=== PATIENT | female | born 1990 | race American Indian/Alaskan Native ===

== ENCOUNTER 2016-12-06 23:34 | Emergency (ER) | payer MEDICAID ==
[2016-12-07 01:26] LABS: Bilirubin,Urine NEG (Negative); Blood,Urine NEG (Negative); Ketones,Urine TR mg/dL (Negative); Leukocyte Esterase,Urine SM (Negative); Mucus,Urine 3+ /HPF; Nitrite,Urine NEG (Negative)
[2016-12-07] MEDS ORDERED: NORCO 5/325 PO ONE (05:25)
--- NOTE | 2016-12-07 05:25 | Emergency Department Report ---
ED ENT HPI - General Chief complaint: Dental/Oral Stated complaint: L SIDE FACIAL PAIN/TOOTHACHE Time Seen by Provider: 12/07/16 05:05 Source: patient Mode of arrival: Ambulatory Limitations: No Limitations - History of Present Illness Initial comments: 26-year-old femalesignificant past medical history presents complaining of bilateral upper and lower toothache. Patient states that she went to a dentist and was told that she has 4 wisdom teeth that need to be extracted. Patient states she is taking Motrin 800 mg with minimal relief of her discomfort. Patient states she was prescribed amoxicillin today by her dentist. Patient states that she has an appointment in January to have wisdom teeth extracted. Denies any pus or blood drainage from mouth states that pain is currently 7 out of 10. Patient speaking in full sentences. MD complaint: tooth pain Onset/Timin -: week(s) Location: tooth # (b/l upper and lower wisdom teeth. Pain behin teeth # 1. 16, 32, 17) Severity: moderate Severity scale (0 -10): 6 Quality: aching Worsens with: eating Context- Dental: other (wisdom teeth) - Related Data Previous Rx's Medication Instructions Recorded Last Taken Type Sulfamethoxazole/Trimethoprim 1 each PO Q12H #14 tablet 10/02/13 Unknown Rx [Bactrim Ds] Acetaminophen/Codeine [Tylenol 1 tab PO Q6H PRN #14 tab 12/07/16 Unknown Rx /Codeine # 3 tab] Chlorhexidine Mouthwash [Peridex] 15 ml MM BID #1 bottle 12/07/16 Unknown Rx Allergies Allergy/AdvReac Type Severity Reaction Status Date / Time No Known Allergies Allergy Unverified 10/02/13 13:35 ED Dental HPI - General Chief complaint: Dental/Oral Stated complaint: L SIDE FACIAL PAIN/TOOTHACHE Time Seen by Provider: 12/07/16 05:05 Source: patient Mode of arrival: Ambulatory Limitations: No Limitations - Related Data Previous Rx's Medication Instructions Recorded Last Taken Type Sulfamethoxazole/Trimethoprim 1 each PO Q12H #14 tablet 10/02/13 Unknown Rx [Bactrim Ds] Acetaminophen/Codeine [Tylenol 1 tab PO Q6H PRN #14 tab 12/07/16 Unknown Rx /Codeine # 3 tab] Chlorhexidine Mouthwash [Peridex] 15 ml MM BID #1 bottle 12/07/16 Unknown Rx Allergies Allergy/AdvReac Type Severity Reaction Status Date / Time No Known Allergies Allergy Unverified 10/02/13 13:35 ED Review of Systems ROS: Stated complaint: L SIDE FACIAL PAIN/TOOTHACHE Other details as noted in HPI Constitutional: denies: chills, fever Eyes: denies: eye pain, eye discharge, vision change ENT: dental pain. denies: ear pain, throat pain Respiratory: denies: cough, shortness of breath, wheezing Cardiovascular: denies: chest pain, palpitations Endocrine: no symptoms reported Gastrointestinal: denies: abdominal pain, nausea, diarrhea Genitourinary: denies: urgency, dysuria, discharge Musculoskeletal: denies: back pain, joint swelling, arthralgia Skin: denies: rash, lesions Neurological: denies: headache, weakness, paresthesias Psychiatric: denies: anxiety, depression Hematological/Lymphatic: denies: easy bleeding, easy bruising ED Past Medical Hx - Past Medical History Previous Medical History?: No - Surgical History Past Surgical History?: Yes Additional Surgical History: 2013 - Social History Smoking Status: Unknown if ever smoked - Medications Home Medications: Home Medications Medication Instructions Recorded Confirmed Last Taken Type Sulfamethoxazole/Trimethoprim 1 each PO Q12H #14 tablet 10/02/13 Unknown Rx [Bactrim Ds] Acetaminophen/Codeine [Tylenol 1 tab PO Q6H PRN #14 tab 12/07/16 Unknown Rx /Codeine # 3 tab] Chlorhexidine Mouthwash [Peridex] 15 ml MM BID #1 bottle 12/07/16 Unknown Rx ED Physical Exam - General Limitations: No Limitations General appearance: alert, in no apparent distress - Head Head exam: Present: atraumatic, normocephalic - Eye Eye exam: Present: normal appearance, PERRL, EOMI - ENT ENT exam: Present: mucous membranes moist - Expanded ENT Exam Expanded Teeth exam: Present: dental tenderness # (pain behind all 4 molars) Throat exam: Positive: normal inspection - Neck Neck exam: Present: normal inspection, full ROM - Respiratory Respiratory exam: Present: normal lung sounds bilaterally. Absent: respiratory distress - Cardiovascular Cardiovascular Exam: Present: regular rate, normal rhythm. Absent: systolic murmur, diastolic murmur, rubs, gallop - GI/Abdominal GI/Abdominal exam: Present: soft, normal bowel sounds - Extremities Exam Extremities exam: Present: normal inspection - Back Exam Back exam: Present: normal inspection - Neurological Exam Neurological exam: Present: alert, oriented X3 - Psychiatric Psychiatric exam: Present: normal affect, normal mood - Skin Skin exam: Present: warm, dry, intact, normal color. Absent: rash ED Course Vital Signs 12/07/16 00:45 Temperature 98.5 F Pulse Rate 77 Respiratory 16 Rate Blood Pressure 125/86 O2 Sat by Pulse 98 Oximetry ED Medical Decision Making - Medical Decision Making A/P: Toothache, wisdom teeth impaction 1-patient states she was ordered given a prescription for 10 day course of amoxicillin by her dentist 2-patient is taking 800 mg Motrin with minimal relief of her pain, will prescribe short course of Tylenol No. 3 with codeine 3-Peridex mouthwash 4- patient provided with a list of free dental clinics in [place] area Critical care attestation.: If time is entered above; I have spent that time in minutes in the direct care of this critically ill patient, excluding procedure time. ED Disposition Clinical Impression: Toothache Disposition: TO HOME OR SELFCARE Is pt being admited?: No Does the pt Need Aspirin: No Condition: Stable Instructions: Benzocaine (By mouth), Toothache (ED) Additional Instructions: [email or web address]&c= Map+and+Directions&[email or web address]&page=Map+and+Directions Prescriptions: Acetaminophen/Codeine [Tylenol /Codeine # 3 tab] 1 tab PO Q6H PRN #14 tab PRN Reason: Toothache Chlorhexidine Mouthwash [Peridex] 15 ml MM BID #1 bottle Referrals: [facility] [Outside] - 3-5 Days Forms: Work/School Release Form(ED) Time of Disposition: 05:30
[2016-12-07 05:45] VITALS: BP 127/87
== END 2016-12-07 05:45 | disposition home or self-care (01) ==
LOC: ED 23:34
DX: K08.89 Other specified disorders of teeth and supporting structures (principal)
CPT/HCPCS: 81001; 81025; 99283

== ENCOUNTER 2017-09-18 18:11 | Emergency (ER) | payer SELFPAY ==
--- NOTE | 2017-09-18 21:10 | Emergency Department Report ---
HPI - General Chief Complaint: Upper Respiratory Infection Time Seen by Provider: 09/18/17 19:30 - HPI HPI: This is a 27-year-old female here complaining of congestion and body ache for 2 months. She said it started off with her having nasal congestion and runny nose with cold symptoms and cough and and turned into wheezing. She says she is having some difficulty breathing and thinks it's related to mold in her apartment that she just recently moved into. She said this started when she moved into an apartment and she thinks it has mold but she has not reported it. She is here with her child who also has upper respiratory symptoms. Patient says she is having generalized aching in at 810. She is taking over-the- counter pain medication with minimal relief. Denies any fever or chills. Denies any nausea or vomiting. Denies any abdominal or back pain. Denies any chest pain. Denies any headache. Reports that she feels like there is pressure in her face. Denies any sore throat. Patient blood pressure is 142/ 101 without any history of high blood pressure. She says she's been taking a lot of llev-qwi-piibiff medication for cold and congestion. ED Past Medical Hx - Past Medical History Previous Medical History?: Yes Additional medical history: anemia, bronchitis - Surgical History Past Surgical History?: Yes Additional Surgical History: 2013, IUD removed and another IUD placed - Family History Family history: diabetes - Social History Smoking Status: Current Every Day Smoker Substance Use Type: Alcohol, Marijuana, Non Opiate Pain, Other - Medications Home Medications: Home Medications Medication Instructions Recorded Confirmed Last Taken Type Sulfamethoxazole/Trimethoprim 1 each PO Q12H #14 tablet 10/02/13 Unknown Rx [Bactrim Ds] Acetaminophen/Codeine [Tylenol 1 tab PO Q6H PRN #14 tab 12/07/16 Unknown Rx /Codeine # 3 tab] Chlorhexidine Mouthwash [Peridex] 15 ml MM BID #1 bottle 12/07/16 Unknown Rx ALBUTEROL Inhaler [ProAir HFA 2 puff IH Q6H PRN #1 inhalation 09/18/17 Unknown Rx Inhaler] Acetaminophen 500 mg PO Q6H PRN #12 tablet 09/18/17 Unknown Rx Amoxicillin/K Clav Tab [Augmentin 1 tab PO Q12HR 10 Days #20 tab 09/18/17 Unknown Rx 875 mg] Cetirizine HCl [ZyrTEC] 10 mg PO QAM 14 Days #14 capsule 09/18/17 Unknown Rx Fluticasone [Flonase] 1 spray NS QDAY 14 Days #1 bottle 09/18/17 Unknown Rx Prednisone 50 mg PO QAM 5 Days #5 tablet 09/18/17 Unknown Rx ED Review of Systems ROS: Stated complaint: CONGESTION,BODY ACHES,COUGH Other details as noted in HPI Comment: All other systems reviewed and negative Constitutional: no symptoms reported Eyes: denies: eye pain, eye discharge ENT: denies: ear pain, throat pain Respiratory: cough, shortness of breath, SOB with exertion, other (patient believes that she is exposed to mold). denies: orthopnea, SOB at rest, stridor , wheezing Cardiovascular: denies: chest pain, palpitations, dyspnea on exertion, orthopnea , edema, syncope, paroxysmal nocturnal dyspnea Gastrointestinal: denies: abdominal pain, nausea, vomiting, diarrhea, constipation, hematemesis, melena, hematochezia Genitourinary: denies: urgency, dysuria, frequency, hematuria, discharge, abnormal menses, dyspareunia Musculoskeletal: myalgia. denies: back pain, joint swelling, arthralgia Skin: denies: rash Neurological: denies: headache, abnormal gait, vertigo Physical Exam - Physical Exam Vital Signs: Vital Signs 09/18/17 18:19 Temperature 98.3 F Pulse Rate 94 H Respiratory 18 Rate Blood Pressure 142/101 O2 Sat by Pulse 97 Oximetry Vital Signs 09/18/17 09/18/17 09/18/17 18:19 21:30 21:45 Temperature 98.3 F Pulse Rate 94 H Pulse Rate [ 88 95 H Posterior] Respiratory 18 Rate Respiratory 16 20 Rate [Posterior ] Blood Pressure 142/101 Blood Pressure [Right] O2 Sat by Pulse 97 Oximetry 09/18/17 21:51 Temperature Pulse Rate 85 Pulse Rate [ Posterior] Respiratory 18 Rate Respiratory Rate [Posterior ] Blood Pressure Blood Pressure 144/94 [Right] O2 Sat by Pulse Oximetry General: This is 27-year-old female well-nourished well-developed in no acute distress Physical Exam: Head: Normocephalic atraumatic Ears:BIateral TM congested without erythema and loss of bony landmarks. Tesfaye EAC with normal exam. No mastoid bone tenderness. Mouth: Moist, no pharyngeal erythema or exudate . UVULA midline and oral airways patent. No peritonsillar abscess. No drooling noted. Neck: Nontender to palpate, supple, normal range of motion. No adenopathy. No c- spine tenderness. Nose: Bilateral nasal mucosa congested with clear drainage. Maxillary and frontal sinuses tender to palpate. Eyes: Bilateral Sclerae and conjunctiva without injection. Bilateral pupils equal and reactive to light. Bilateral lids are normal. Normal accommodation.BEOMI Lungs: Scattered wheezes in the upper lung cueto. No rhonchi or rales. Dry cough, Normal work of breathing and no chest wall tenderness Extremity: No clubbing, cyanosis or edema. +2 pulses to all extremities and no neurovascular compromise Abdomen: Soft, nontender to palpate noted by no facial grimacing. No distention or rigidity. Normal bowel sounds in all quadrants . Patient does not cry with tapping of bilateral flank. CV: S1, S2. Regular rate,Regular rhythm negative murmur. Capillary refill is less than 3 seconds Skin: Clean dry and intact, no rashes or lesions Psych: Normal mood and behavior ED Course Vital Signs 09/18/17 18:19 Temperature 98.3 F Pulse Rate 94 H Respiratory 18 Rate Blood Pressure 142/101 O2 Sat by Pulse 97 Oximetry - Reevaluation(s) Reevaluation #1: 09/18/17 23:36 Patient given Xopenex 0.63 mg, Atrovent 0.5 mg nebulizer and Deltasone 60 mg. Upon reevaluation, her lung sounds are clear and she says she is feeling better. Received clonidine 0.1 mg by mouth for elevated blood pressure and Motrin 800 mg by mouth for musculoskeletal pain. Pain is better and the blood pressure is better. ED Medical Decision Making - Radiology Data Radiology results: report reviewed, image reviewed interpreted by me: Chest images reviewed by myself and Dr. De La Fuente and patient does not have any acute cardiopulmonary findings but final reading to be done by radiologist. - Medical Decision Making ED course: Patient and here with cough and congestion, acute sinusitis and bronchitis. Musculoskeletal pain. She also had elevated blood pressure suspect from taking multiple [id number] decongestion. Patient and was given medication in emergency room for blood pressure and nebulizer treatments for wheezing to lungs. Her lung sounds are clear and she says she feels better. She was given blood pressure medication and blood pressure is better. I discussed patient that she needs to talk with her landlord regarding mold in apartment and she needs to remove herself from area. I also discuss her that she can call the health department to report this if landlord does not relocate her to area that is mold free. I discussed patient's chest x-ray results which did not have any negative findings on films when reviewed by myself and Dr. De La Fuente. I also discussed with her diagnosis and treatment plan and that she needs to follow up with primary care physician which she does not have one so I told her she is to follow-up at [facility] in 2-3 days. Patient was undescended discharge instruction and treatment plan and discharged home with prescription for Tessalon Perle, albuterol, Tylenol plain, Augmentin, Zyrtec and Flonase. Critical care attestation.: If time is entered above; I have spent that time in minutes in the direct care of this critically ill patient, excluding procedure time. ED Disposition Clinical Impression: Suspected exposure to mold, Cough in adult, Musculoskeletal pain Acute sinusitis Qualifiers: Sinusitis location: unspecified location Recurrence: not specified as recurrent Qualified Code(s): J01.90 - Acute sinusitis, unspecified Acute bronchitis Qualifiers: Bronchitis organism: unspecified organism Qualified Code(s): J20.9 - Acute bronchitis, unspecified Disposition: DC-01 TO HOME OR SELFCARE Is pt being admited?: No Does the pt Need Aspirin: No Condition: Stable Instructions: Acute Bronchitis (ED), Sinusitis (ED), Acute Cough (ED), How to Stop Smoking (ED), Hypertension (ED), How to Take a Blood Pressure (ED), Musculoskeletal Pain (ED) Additional Instructions: Please increase her fluid intake Flush nostrils with saline nasal spray take antibiotic as prescribed Take albuterol inhaler as prescribed Take Tylenol for pain F/U with primary care physician as instructed Take Zyrtec and Flonase for congestion A Tessalon Perles for cough Few suspect there is mold in your apartment, he will need to reported to landlord and if he does not move you to another apartment that is small free then he needs to call the health department. Prescriptions: Acetaminophen 500 mg PO Q6H PRN #12 tablet PRN Reason: musculoskeletal pain ALBUTEROL Inhaler [ProAir HFA Inhaler] 2 puff IH Q6H PRN #1 inhalation PRN Reason: cough and wheezing Amoxicillin/K Clav Tab [Augmentin 875 mg] 1 tab PO Q12HR 10 Days #20 tab Cetirizine HCl [ZyrTEC] 10 mg PO QAM 14 Days #14 capsule Fluticasone [Flonase] 1 spray NS QDAY 14 Days #1 bottle Prednisone 50 mg PO QAM 5 Days #5 tablet Referrals: PRIMARY CARE,MD [Primary Care Provider] - 2-3 Days [facility] [Outside] - 2-3 Days Forms: Work/School Release Form(ED)
[2017-09-18] MEDS ORDERED: ATROVENT IH ONE (21:12)
[2017-09-18] MEDS ORDERED: CATAPRES PO ONE (21:12)
[2017-09-18] MEDS ORDERED: DELTASONE PO ONE (21:12)
[2017-09-18] MEDS ORDERED: MOTRIN PO ONE (21:12)
[2017-09-18] MEDS ORDERED: XOPENEX IH ONE (21:12)
[2017-09-18] MEDS ORDERED: NACL 0.9% 1000 ML 2,000 ML IV ONE (23:21)
[2017-09-18 23:35] VITALS: BP 130/89
--- NOTE | 2017-09-19 00:33 | XRay Report ---
FINAL REPORT PROCEDURE: XR CHEST ROUTINE 2V TECHNIQUE: PA and lateral chest radiographs were obtained. CPT 68476 HISTORY: cough and congestion x 2 months COMPARISON: No prior studies are available for comparison. FINDINGS: Heart: Normal. Mediastinum/Vessels: Normal. Lungs/Pleural space: Normal. Bony thorax: No acute osseous abnormality. Other: IMPRESSION: Normal examination.
== END 2017-09-18 23:55 | disposition home or self-care (01) ==
LOC: ED 18:11
DX: J01.90 Acute sinusitis, unspecified (principal); J20.9 Acute bronchitis, unspecified; Z86.2 Personal history of diseases of the blood and blood-forming organs and certain disorders involving the immune mechanism; F17.200 Nicotine dependence, unspecified, uncomplicated; F12.10 Cannabis abuse, uncomplicated
CPT/HCPCS: 71046; 94640; 99283; J7512

== ENCOUNTER 2020-08-18 13:14 | Emergency (ER) | payer MEDICAID ==
[2020-08-18 14:05] VITALS: BP 130/100
--- NOTE | 2020-08-18 14:42 | Emergency Department Report ---
ED Extremity Problem HPI - General Chief complaint: Extremity Injury, Upper Stated complaint: RT SHOULDER PAIN Time Seen by Provider: 08/18/20 14:32 Source: patient Mode of arrival: Ambulatory Limitations: No Limitations - History of Present Illness Initial comments: Patient is a 30-year-old female presents emergency room complaints of right shoulder pain that began yesterday morning when she woke up. She states that she believes she may have slept wrong. She denies any fall or injury. 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 She states that her pain is worse with movement and lifting her arm above her head. She denies ever injuring this shoulder in the past. She denies any numbness, weakness, swelling, redness, fever, any other symptoms. No past medical history. No allergies to medications. Last menstrual cycle 08/03/2020. - Related Data Previous Rx's Medication Instructions Recorded Last Taken Type Amoxicillin 500 mg PO BID #20 capsule 04/26/18 Unknown Rx Fluticasone [Flonase] 1 spray NS QDAY #1 bottle 04/26/18 Unknown Rx methylPREDNISolone [Medrol] 4 mg PO DAILY #1 tab.ds.pk 04/26/18 Unknown Rx predniSONE [Deltasone] 20 mg PO DAILY #5 tablet 04/26/18 Unknown Rx Menthol/Camphor [Placentia Chaparral 1 applicatio TP BID #18 oint...g. 08/18/20 Unknown Rx Ointment] Naproxen [EC-Naprosyn] 500 mg PO BID PRN #14 tablet.dr 08/18/20 Unknown Rx methOCARBAMOL [Robaxin TAB] 500 mg PO BID PRN #14 tab 08/18/20 Unknown Rx Allergies Allergy/AdvReac Type Severity Reaction Status Date / Time No Known Allergies Allergy Verified 08/18/20 14:02 ED Review of Systems ROS: Stated complaint: RT SHOULDER PAIN Other details as noted in HPI Comment: All other systems reviewed and negative ED Past Medical Hx - Past Medical History Additional medical history: anemia, bronchitis/SCOILOSIS - Surgical History Additional Surgical History: 2013, IUD removed and another IUD placed - Social History Smoking Status: Never Smoker Substance Use Type: Alcohol, Marijuana - Medications Home Medications: Home Medications Medication Instructions Recorded Confirmed Last Taken Type Amoxicillin 500 mg PO BID #20 capsule 04/26/18 Unknown Rx Fluticasone [Flonase] 1 spray NS QDAY #1 bottle 04/26/18 Unknown Rx methylPREDNISolone [Medrol] 4 mg PO DAILY #1 tab.ds.pk 04/26/18 Unknown Rx predniSONE [Deltasone] 20 mg PO DAILY #5 tablet 04/26/18 Unknown Rx Menthol/Camphor [Placentia Chaparral 1 applicatio TP BID #18 oint...g. 08/18/20 Unknown Rx Ointment] Naproxen [EC-Naprosyn] 500 mg PO BID PRN #14 tablet.dr 08/18/20 Unknown Rx methOCARBAMOL [Robaxin TAB] 500 mg PO BID PRN #14 tab 08/18/20 Unknown Rx ED Physical Exam - General Limitations: No Limitations General appearance: alert, in no apparent distress - Head Head exam: Present: atraumatic, normocephalic - Eye Eye exam: Present: normal appearance - ENT ENT exam: Present: mucous membranes moist - Respiratory Respiratory exam: Absent: respiratory distress, accessory muscle use - Extremities Exam Extremities exam: Present: other (ttp to the right posterior trapezius, no bony ttp of the RUE, FROM of the RUE, no deformity, no edema, no ecchymosis, no increased warmth, no erythema, clavicles are equal, no clavicular ttp, neurovascularly intact) - Neurological Exam Neurological exam: Present: alert, oriented X3 - Psychiatric Psychiatric exam: Present: normal affect, normal mood - Skin Skin exam: Present: warm, dry, intact ED Course Vital Signs 08/18/20 14:01 Temperature 98.6 F Pulse Rate 82 Respiratory 20 Rate Blood Pressure 130/100 O2 Sat by Pulse 100 Oximetry ED Medical Decision Making - Medical Decision Making Patient is a 30-year-old female presents emergency room complaints of right shoulder pain that began yesterday morning when she woke up. She states that she believes she may have slept wrong. She denies any fall or injury. 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 She states that her pain is worse with movement and lifting her arm above her head. She denies ever injuring this shoulder in the past. She denies any numbness, weakness, swelling, redness, fever, any other symptoms. No past medical history. No allergies to medications. Last menstrual cycle 08/03/2020. VSS. on exam:ttp to the right posterior trapezius, no bony ttp of the RUE, FROM of the RUE, no deformity, no edema, no ecchymosis, no increased warmth, no erythema, clavicles are equal, no clavicular ttp, neurovascularly intact. She has point tenderness to palpation over the trapezius muscle. Symptoms most likely consistent with trapezius strain. She has had no acute traumatic injury. Patient given prescription for naproxen, Robaxin, Placentia balm ointment. Advised patient Please use medication as prescribed. Do not drive or operate heavy machinery while using muscle relaxer Robaxin. May use ice pack, heating pad, rest, and epsom salt bath. Follow-up with orthopedic doctor if symptoms or not improving. Return to emergency room for any new or worsening symptoms. Critical care attestation.: If time is entered above; I have spent that time in minutes in the direct care of this critically ill patient, excluding procedure time. ED Disposition Clinical Impression: Strain of trapezius muscle Qualifiers: Encounter type: initial encounter Laterality: right Qualified Code(s): S46.811A - Strain of other muscles, fascia and tendons at shoulder and upper arm level, right arm, initial encounter Disposition: - TO HOME OR SELFCARE Is pt being admited?: No Does the pt Need Aspirin: No Condition: Stable Instructions: Muscle Strain Additional Instructions: Please use medication as prescribed. Do not drive or operate heavy machinery while using muscle relaxer Robaxin. May use ice pack, heating pad, rest, and epsom salt bath. Follow-up with orthopedic doctor if symptoms or not improving. Return to emergency room for any new or worsening symptoms. Prescriptions: Naproxen [EC-Naprosyn] 500 mg PO BID PRN #14 tablet. PRN Reason: pain methOCARBAMOL [Robaxin TAB] 500 mg PO BID PRN #14 tab PRN Reason: pain Menthol/Camphor [Placentia Chaparral Ointment] 1 applicatio TP BID #18 oint...g. Referrals: MAHESH SCHULTZ MD [Staff Physician] - 3-5 Days [facility] [Provider Group] - 3-5 Days Time of Disposition: 14:41 Print Language: DIVEHI
== END 2020-08-18 15:13 | disposition home or self-care (01) ==
LOC: ED 13:14
DX: S46.811A Strain of other muscles, fascia and tendons at shoulder and upper arm level, right arm, initial encounter (principal); F12.10 Cannabis abuse, uncomplicated; Z79.899 Other long term (current) drug therapy; X50.9XXA Other and unspecified overexertion or strenuous movements or postures, initial encounter; Y93.89 Activity, other specified; Y92.89 Other specified places as the place of occurrence of the external cause; Y99.8 Other external cause status
CPT/HCPCS: 99282

== ENCOUNTER 2021-05-22 20:35 | Emergency (ER) | payer MEDICAID ==
[2021-05-22] MEDS ORDERED: ONDANSETRON 4 MG ODT TAB PO ONE (23:04)
--- NOTE | 2021-05-23 00:24 | Emergency Department Report ---
ED General Adult HPI - General Chief complaint: Pain General Stated complaint: CHEST PAINS Time Seen by Provider: 05/22/21 23:00 Source: patient Mode of arrival: Ambulatory Limitations: No Limitations - History of Present Illness Initial comments: Patient presents with generalized malaise and body aches. She has had nausea and vomiting. She has had known coronavirus exposure. She is concerned that she likely has coronavirus. Multiple family emerged have this. She is here because she just does not feel well. She is also 28 weeks . She has not been able to keep liquids down. She states she cannot eat solid food. She just keeps vomiting. There is no hematemesis or coffee-ground emesis. Has no melenic stool. Patient has no dysuria or frequency. She is still feeling the baby move. There has been no leakage of fluid. Because of her concern for coronavirus and vomiting, she came here. This started a couple of days ago. - Related Data Previous Rx's Medication Instructions Recorded Last Taken Type Amoxicillin 500 mg PO BID #20 capsule 04/26/18 Unknown Rx Fluticasone [Flonase] 1 spray NS QDAY #1 bottle 04/26/18 Unknown Rx methylPREDNISolone [Medrol] 4 mg PO DAILY #1 tab.ds.pk 04/26/18 Unknown Rx predniSONE [Deltasone] 20 mg PO DAILY #5 tablet 04/26/18 Unknown Rx Menthol/Camphor [[place] 1 applicatio TP BID #18 oint...g. 08/18/20 Unknown Rx Ointment] methOCARBAMOL [Robaxin TAB] 500 mg PO BID PRN #14 tab 08/18/20 Unknown Rx Metoclopramide [Reglan] 10 mg PO TID PRN #60 tab 05/23/21 Unknown Rx Allergies Allergy/AdvReac Type Severity Reaction Status Date / Time No Known Allergies Allergy Verified 08/18/20 14:02 ED Review of Systems ROS: Stated complaint: CHEST PAINS Other details as noted in HPI Comment: All other systems reviewed and negative Constitutional: denies: weakness Eyes: denies: eye pain ENT: denies: throat pain Respiratory: see HPI Cardiovascular: denies: chest pain Endocrine: denies: unexplained weight loss Gastrointestinal: as per HPI Genitourinary: denies: dysuria Musculoskeletal: denies: back pain Skin: denies: rash Neurological: denies: headache Hematological/Lymphatic: denies: easy bruising ED Past Medical Hx - Past Medical History Previous Medical History?: Yes Additional medical history: anemia, bronchitis/SCOILOSIS, gestational DIABETES - Surgical History Past Surgical History?: No Additional Surgical History: 2013, IUD removed and another IUD placed - Family History Family history: no significant - Social History Smoking Status: Never Smoker Substance Use Type: Alcohol, Marijuana - Medications Home Medications: Home Medications Medication Instructions Recorded Confirmed Last Taken Type Amoxicillin 500 mg PO BID #20 capsule 04/26/18 Unknown Rx Fluticasone [Flonase] 1 spray NS QDAY #1 bottle 04/26/18 Unknown Rx methylPREDNISolone [Medrol] 4 mg PO DAILY #1 tab.ds.pk 04/26/18 Unknown Rx predniSONE [Deltasone] 20 mg PO DAILY #5 tablet 04/26/18 Unknown Rx Menthol/Camphor [[place] 1 applicatio TP BID #18 oint...g. 08/18/20 Unknown Rx Ointment] methOCARBAMOL [Robaxin TAB] 500 mg PO BID PRN #14 tab 08/18/20 Unknown Rx Metoclopramide [Reglan] 10 mg PO TID PRN #60 tab 05/23/21 Unknown Rx ED Physical Exam - General Limitations: No Limitations, Other General appearance: alert (Pulse ox noted and normal), in no apparent distress - Head Head exam: Present: atraumatic, normocephalic - Eye Eye exam: Present: normal appearance, PERRL, EOMI. Absent: scleral icterus - ENT ENT exam: Present: mucous membranes dry, normal external ear exam - Neck Neck exam: Present: normal inspection. Absent: meningismus - Respiratory Respiratory exam: Present: normal lung sounds bilaterally. Absent: respiratory distress - Cardiovascular Cardiovascular Exam: Present: regular rate, normal rhythm - GI/Abdominal GI/Abdominal exam: Present: soft. Absent: distended, tenderness - Extremities Exam Extremities exam: Present: normal capillary refill - Back Exam Back exam: Absent: CVA tenderness (R), CVA tenderness (L) - Neurological Exam Neurological exam: Present: alert, oriented X3. Absent: motor sensory deficit - Psychiatric Psychiatric exam: Present: normal affect, normal mood - Skin Skin exam: Present: warm, dry ED Course Vital Signs 12/31/21 22:35 Temperature 98.7 F Pulse Rate 97 H Respiratory 18 Rate Blood Pressure 118/73 O2 Sat by Pulse 99 Oximetry - Reevaluation(s) Reevaluation #1: 05/23/21 00:33 Patient was tolerating orals after medication and was discharged. ED Medical Decision Making - Medical Decision Making Patient present with a viral constellation of symptoms as well as known exposure to coronavirus. She does have vomiting which has been controlled medication. She has no complaints regarding vaginal bleeding or discharge. She is still having good movement. I do not believe this represents a direct complication from the . She very well could have coronavirus but does not require immediate testing. She was treated symptomatically and referred to outpatient evaluation follow-up. Critical Care Time: No Critical care attestation.: If time is entered above; I have spent that time in minutes in the direct care of this critically ill patient, excluding procedure time. ED Disposition Clinical Impression: Viral syndrome, Suspected COVID-19 virus infection Nausea & vomiting Qualifiers: Vomiting type: unspecified Qualified Code(s): R11.2 - Nausea with vomiting, unspecified Disposition: 01 HOME / SELF CARE / HOMELESS Is pt being admited?: No Condition: Stable Instructions: Viral Respiratory Infection, [id number], Hand Washing, [id number], Nausea and Vomiting, Adult, [id number] Additional Instructions: Drink plenty water. Have a bland diet. Return for problems. Follow up with your regular doctor for recheck. Prescriptions: Metoclopramide [Reglan] 10 mg PO TID PRN #60 tab PRN Reason: Nausea Referrals: PRIMARY CARE,MD [Primary Care Provider] - 3-5 Days
[2021-05-23 00:51] VITALS: BP 114/66
== END 2021-05-23 | disposition home or self-care (01) ==
LOC: ED 20:35
DX: O26.893 Other specified pregnancy related conditions, third trimester (principal); B34.9 Viral infection, unspecified; Z20.822 Contact with and (suspected) exposure to COVID-19; O21.9 Vomiting of pregnancy, unspecified; F12.90 Cannabis use, unspecified, uncomplicated; Z72.89 Other problems related to lifestyle; Z79.899 Other long term (current) drug therapy; Z3A.28 28 weeks gestation of pregnancy
CPT/HCPCS: 99282; J3490; Q0162